=== PATIENT | female | born 1970 | race American Indian/Alaskan Native ===

== ENCOUNTER 2017-06-19 12:44 | Outpatient (CLI) | payer BC ==
--- NOTE | 2017-06-23 09:09 | Mammography Report ---
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 COMPARISON:04/21/16 FINDINGS: The breasts are heterogeneously dense, which may obscure small masses.Right upper outer biopsy clip. No mass, architectural distortion or suspicious calcifications. IMPRESSION: No mammographic evidence of malignancy. BI-RADS CATEGORY: 2 -- Benign RECOMMENDATION: Routine mammographic screening in one year. COMMENT: Patient follow-up letters are generated by our [employer] application.
== END 2017-06-19 12:45 | disposition home or self-care (01) ==
LOC: SPVWC 12:44
PROVIDERS: ATTEND Obstetrics & Gynecology
DX: Z12.31 Encounter for screening mammogram for malignant neoplasm of breast (principal)
CPT/HCPCS: 77067; G0202

== ENCOUNTER 2018-06-25 08:59 | Outpatient (CLI) | payer BC ==
--- NOTE | 2018-06-25 13:16 | Mammography Report ---
BILATERAL DIGITAL SCREENING MAMMOGRAM with CAD : 06/25/18 08:59:00 CLINICAL: Routine screening. COMPARISON:06/19/17 FINDINGS: The breasts are heterogeneously dense, which may obscure small masses.A right upper outer biopsy clip. No mass, architectural distortion or suspicious calcifications. IMPRESSION: No mammographic evidence of malignancy. BI-RADS CATEGORY: 2 -- Benign RECOMMENDATION: Routine mammographic screening in one year. COMMENT: Patient follow-up letters are generated by our [employer] application.
== END 2018-06-25 09:00 | disposition home or self-care (01) ==
LOC: SPVWC 08:59
PROVIDERS: ATTEND Obstetrics & Gynecology
DX: Z12.31 Encounter for screening mammogram for malignant neoplasm of breast (principal)
CPT/HCPCS: 77067

== ENCOUNTER 2019-06-27 15:54 | Outpatient (CLI) | payer BC ==
--- NOTE | 2019-06-28 08:28 | Mammography Report ---
DIGITAL SCREENING MAMMOGRAM WITH CAD, 06/27/2019 INDICATION: Routine screening mammography. Status post biopsy of a benign fibroadenoma of the right b reast 06/11/2016. TECHNIQUE: Digital bilateral 2D mammography was obtained in the craniocaudal and mediolateral obliq ue projections. This examination was interpreted with the benefit of Computer-Aided Detection analysi s. COMPARISON: 06/25/2018 FINDINGS: Breast Density: The breasts are heterogeneously dense, which may obscure small masses. A right upper outer biopsy clip and a stable right inner oval circumscribed mass. No new mass, rita ectural distortion or suspicious calcifications of the right breast. A left outer asymmetry on an exa ggerated CC view requires additional imaging. No architectural distortion or suspicious calcification s of the left breast. IMPRESSION: Left asymmetry requiring additional imaging. Recommend recall for exaggerated CC spot com pression view and left breast ultrasound if needed. Follow up recommendation: Special View: Spot Category 0: Incomplete. Needs additional imaging evaluation and/or prior mammograms for comparison. A "normal" or negative report should not discourage follow up or biopsy of a clinically significant f inding. A written summary of these findings will be mailed to the patient. The patient will be entered into a mammography reporting system which will generate a reminder letter for the patient's next appointmen t at the appropriate interval. The [employer] recommends yearly mammograms starting at age 40 and continuing as l [address] as a woman is in good health. Breast MRI is recommended for women with an approximate 20-25% or greater lifetime risk of breast cancer, including women with a strong family history of breast or ova royer cancer or who have been treated for Hodgkin's disease. Signer Name: Ankit Patel MD Signed: 06/28/2019 8:23 AM Workstation Name: [id number]
== END 2019-06-27 15:55 | disposition home or self-care (01) ==
LOC: SPVWC 15:54
PROVIDERS: ATTEND Obstetrics & Gynecology
DX: Z12.31 Encounter for screening mammogram for malignant neoplasm of breast (principal); N64.89 Other specified disorders of breast
CPT/HCPCS: 77067

== ENCOUNTER 2019-08-10 14:58 | Outpatient (CLI) | payer BC ==
--- NOTE | 2019-08-10 15:33 | Mammography Report ---
DIGITAL DIAGNOSTIC MAMMOGRAM WITH CAD, 08/10/2019 INDICATION: Recall to evaluate asymmetry. ABNORMAL MAMMOGRAM TECHNIQUE: Digital left mammographic imaging was performed. Spot compression views were obtained. This examination was interpreted with the benefit of Computer-aided Detection analysis. COMPARISON: 06/27/2019 FINDINGS: Breast Density: The breasts are heterogeneously dense, which may obscure small masses. ML and spot compression exaggerated CC views were performed and are negative. Satisfactory effacement of asymmetry. IMPRESSION: No mammographic evidence of malignancy. Follow up recommendation: Routine yearly BI-RADS Category 1: Negative. A "normal" or negative report should not discourage follow up or biopsy of a clinically significant f inding. A written summary of these findings will be mailed to the patient. The patient will be entered into a mammography reporting system which will generate a reminder letter for the patient's next appointmen t at the appropriate interval. According to the [employer], yearly mammograms are recommended starting at age 40 and continuing as long as a woman is in good health. Breast MRI is recommended for women with an [place] roximately 20-25% or greater lifetime risk of breast cancer, including women with a strong family his tory of breast or ovarian cancer and women who have been treated for Hodgkin's disease. Signer Name: Ankit Patel MD Signed: 08/10/2019 3:29 PM Workstation Name: [id number]
== END 2019-08-10 14:59 | disposition home or self-care (01) ==
LOC: SPVWC 14:58
PROVIDERS: ATTEND Obstetrics & Gynecology
DX: R92.8 Other abnormal and inconclusive findings on diagnostic imaging of breast (principal)

== ENCOUNTER 2020-12-27 09:23 | Outpatient (CLI) | payer BC ==
--- NOTE | 2020-12-27 12:46 | Mammography Report ---
DIGITAL SCREENING MAMMOGRAM WITH CAD, 12/27/2020 CLINICAL INFORMATION / INDICATION: Routine screening mammography. SCREENING MAMMO TECHNIQUE: Digital bilateral 2D mammography was obtained in the craniocaudal and mediolateral obliqu e projections. This examination was interpreted with the benefit of Computer-Aided Detection analysis . COMPARISON: 04/21/2016 through 06/27/2019. FINDINGS: Breast Density: The breasts are heterogeneously dense, which may obscure small masses. No dominant mass, suspicious calcifications, or architectural distortion in either breast. There is a right biopsy clip. Left breast scarring is present. No new abnormality is seen. IMPRESSION: No mammographic evidence of malignancy. Follow up recommendation: Routine yearly BI-RADS Category 2: Benign. A "normal" or negative report should not discourage follow up or biopsy of a clinically significant f inding. A written summary of these findings will be mailed to the patient. The patient will be entered into a mammography reporting system which will generate a reminder letter for the patient's next appointmen t at the appropriate interval. The [employer] recommends yearly mammograms starting at age 40 and continuing as l [address] as a woman is in good health. Breast MRI is recommended for women with an approximate 20-25% or greater lifetime risk of breast cancer, including women with a strong family history of breast or ova royer cancer or who have been treated for Hodgkin's disease. Signer Name: Bon Garcia MD Signed: 12/27/2020 12:42 PM Workstation Name: [id number]
== END 2020-12-27 09:24 | disposition home or self-care (01) ==
LOC: SPVWC 09:23
PROVIDERS: ATTEND Obstetrics & Gynecology
DX: Z12.31 Encounter for screening mammogram for malignant neoplasm of breast (principal); N64.89 Other specified disorders of breast
CPT/HCPCS: 77067